=== PATIENT | male | born 1975 | race Caucasian/White ===

== ENCOUNTER 2017-10-05 12:30 | Emergency (ER) | payer BC, SELFPAY ==
[2017-10-05 12:32] VITALS: BP 147/97; PULSE 103; RESP 16; TEMP 36.6; O2SAT 98; BMI 27.3
[2017-10-05] MEDS: diazePAM 5 MG Tablet PO (12:54)
[2017-10-05] MEDS: HYDROmorphone 1 MG/ML Syringe IM (12:54)
--- NOTE | 2017-10-05 12:54 | ED.DCSUM_ITS ---
- ER Visit Summary Date of Service: 10/05/17 Chief Complaint: Acute on chronic back pain History of Present Illness: The patient is a 42 M 3 of chronic back problems. He has had multiple back surgeries with recent L345 fusion. He sees Dr. Nicole for chronic back pain. And he has a spinal stimulator. He said normally his pain is controlled well he does use Percocet at home for pain. States he has been working on a swing set for his children at home and his pain flared up in the last 1-2 days. Denies any bowel or bladder dysfunction or incontinence. Denies any loss of strength or sensation to his lower extremities. Physical Examination: Middle-aged male complaining of pain vital signs are stable afebrile. HEENT exam unremarkable neck nontender lungs clear to auscultation bilaterally. Heart regular rhythm no murmur rate about 100. Chest nontender. Abdomen soft nontender normal bowel sounds no peritoneal signs. He is moving all 4 extremities. Neurovascular intact. No cauda equina or saddle anesthesia normal medial thigh sensation in the lower extremity dorsi plantar flexion intact. Back exam he has a large lower lumbar midline surgical scar. He does have paraspinal tenderness. He does have also muscle spasm of the paralumbar soft tissues. There is no redness or warmth. No signs of trauma. Neurologically is awake and alert with no focal motor or sensory deficits again no cauda equina. Test Results: None Emergency Department Course and Treatment: Patient with acute on chronic low back pain. Has had multiple prior back surgeries. He is already on chronic pain management. Treatment Plan: I am injection of Toradol and Dilaudid. P.o. Valium and discharged home without any prescriptions. He can follow-up with Dr. Chowdary. Disposition: Discharged Impression: Acute on chronic low back pain History of prior back surgery including lumbar fusion This note was generated with [email or web address] dictation software. It may contain incorrect words, spelling, and punctuation that were not noted in review of the chart prior to signing ED Disposition - Plan for ED Patient: Chief Complaint: Back Referrals: Steve Joseph MD [Primary Care Provider] -
--- NOTE | 2017-10-05 12:54 | ED.DEP ---
ED Disposition - Plan for ED Patient: Disposition: Home or Assisted Living Chief Complaint: Back Instructions: ED Neck Back Pain General Referrals: Steve Joseph MD [Primary Care Provider] - As Needed Susan Nicole MD [STAFF PHYSICIAN] - As soon as possible Additional Instructions: Continue your current home pain medications. Call follow-up with Dr. Nicole.
[2017-10-05] MEDS: Ketorolac 60 MG/2 ML Vial IM (12:55)
[2017-10-05 13:25] VITALS: BP 136/86; PULSE 84; RESP 18; O2SAT 97
== END 2017-10-05 13:25 | disposition home or self-care (01) ==
PROVIDERS: Emergency Provider Emergency Medicine; Family Provider Family Medicine; PCP Family Medicine
DX: G89.29 Other chronic pain (principal); M54.5 Low back pain; Z72.0 Tobacco use; Z98.1 Arthrodesis status
CPT/HCPCS: 99282

== ENCOUNTER 2017-10-06 08:23 | Emergency (ER) | payer BC, SELFPAY ==
[2017-10-06 08:24] VITALS: BP 142/96; PULSE 102; RESP 24; TEMP 37.1; O2SAT 99; BMI 27.1
--- NOTE | 2017-10-06 08:40 | ED.DCSUM_ITS ---
- ER Visit Summary Date of Service: 10/06/17 Chief Complaint: Back pain History of Present Illness: The patient is a [address] Nicole and Dr. Swartz. He reports that he has a history of back problems and is had 4 surgeries on his back. Most recently he had a spinal stimulator placed in May 2017. States that he is working on a swing set over the weekend and has had increased pain in his back over the past 3 days. It has been much worse the past 2 days. He denies any trauma. No fall or MVA. Patient describes the pain as a continuous aching that is stabbing with movement or walking. It is 10 out of 10 at worst 9 out of 10 currently. It is unrelieved by his Xtampza Percocet, and baclofen. There is no radiation to his legs. No numbness or weakness in his legs. No problems with his bowels or his bladder. No groin numbness. He has had no fever, chills, abdominal pain, dysuria, or frequency. Physical Examination: Vitals: Stable. Afebrile. General: A&O x 3. NAD. Cardiovascular exam: Regular rate and rhythm, no murmur, rub or gallop. Respiratory exam: Clear to auscultation bilaterally. No wheezes or stridor. Abdominal exam: Soft, nontender, nondistended, normal bowel sounds. No peritoneal signs. Back: Diffuse moderate tenderness to palpation over the lumbar spine and the paraspinous musculature in the lumbar region. No point tenderness. Negative straight leg bilaterally. 5/5 DF, PF, EHL bilaterally. Normal sensation to light touch throughout. Extremity: No clubbing, cyanosis, or edema. Emergency Department Course and Treatment: The patient was discussed with Dr. Nicole who asked that we give him a dose of Dilaudid, Toradol, and Valium here. Treatment Plan: The patient is instructed to increase his baclofen to 20 mg twice daily. Increase his Xtampza to to 3 times daily. He will be placed on a Medrol Dosepak. Dr. Nicole can see him tomorrow for further evaluation and possible injection. Disposition: To home in improved and stable condition. Impression: 1. Acute on chronic back pain. This note was generated with [employer] software. It may contain incorrect words, spelling, and punctuation that were not noted in review of the chart prior to signing ED Disposition - Plan for ED Patient: Chief Complaint: Back Instructions: ED Neck Back Pain General Prescriptions: MethylPREDNISolone DosePak [Medrol DosePak] 4 mg PO UD #1 box Referrals: Susan Nicoel MD [STAFF PHYSICIAN] - 1 Day for another exam
[2017-10-06] MEDS: predniSONE 20 MG Tablet 60 MG PO (08:53)
[2017-10-06] MEDS: Ketorolac 60 MG/2 ML Vial IM (08:53)
[2017-10-06] MEDS: HYDROmorphone 1 MG/ML Syringe IM (08:53)
[2017-10-06] MEDS: diazePAM 5 MG Tablet PO (08:53)
[2017-10-06 09:19] VITALS: BP 110/66; PULSE 88; RESP 18
== END 2017-10-06 09:20 | disposition home or self-care (01) ==
LOC: ED 09:03
PROVIDERS: Emergency Provider Emergency Medicine; Family Provider Family Medicine; PCP Family Medicine
DX: G89.29 Other chronic pain (principal); M54.9 Dorsalgia, unspecified; F17.210 Nicotine dependence, cigarettes, uncomplicated
CPT/HCPCS: 96372; 99284

== ENCOUNTER → 2017-12-14 16:35 | Outpatient (CLI) | payer BC, SELFPAY ==
--- NOTE | 2017-12-14 16:37 | CT_ITS ---
STUDY: CT LUMBAR SPINE WITHOUT CONTRAST REASON FOR EXAM: Male, 42 years old. Back pain. Multiple prior back surgeries. Removal of nerve stimulator. RADIATION DOSAGE (If Supplied By Facility): CTDIvol = ( 16.10 ) mGy, DLP = ( 520.16 ) mGycm TECHNIQUE: The patient was scanned in a multi detector CT scanner. High resolution transaxial imaging was performed. Images were obtained of the lumbar spine. Sagittal and coronal images were reconstructed. Individualized dose optimization techniques were used for this CT. COMPARISON: None FINDINGS: Normal lumbar lordosis. There is no substantial scoliosis. Postoperative changes of posterior lumbar fusion L3-L5 with additional finding suggestive of removal of posterior fusion hardware. Laminectomies at L3, L4 and L5. L1-2: Endplate degenerative changes. Normal disc height and morphology. Normal bilateral facet joints. Normal central canal and bilateral lateral recesses. Normal bilateral intervertebral neural foramina. L2-3: Disc space narrowing with endplate degenerative changes. Normal bilateral facet joints. Normal central canal and bilateral lateral recesses. Normal bilateral intervertebral neural foramina. L3-4: Normal endplates. Normal disc height and morphology. Normal bilateral facet joints. Normal central canal and bilateral lateral recesses. Normal bilateral intervertebral neural foramina. L4-5: Mild marginal osteophytes.. Disc space narrowing. Normal bilateral facet joints. Normal central canal and bilateral lateral recesses. Mild bilateral neural foramina narrowing. L5-S1: Normal endplates. Disc space narrowing with vacuum disc. Broad-based central disc bulge. Normal bilateral facet joints. Normal central canal and bilateral lateral recesses. Mild bilateral neural foraminal narrowing. Normal visualized paraspinous soft tissue structures. Nerve stimulator enters the posterior spinal canal at T12-L1. CT/Spine Lumbar without Contrast IMPRESSION: Multilevel degenerative changes of the lumbar spine. No significant spinal stenosis. Postoperative changes compatible with removal of posterior fusion hardware L3-L5.. Electronically Signed: Rashi Deleon MD at 3:11 EDT , Service support ,
== END ==
PROVIDERS: Visit Provider Anesthesiology Pain Medicine
DX: M54.9 Dorsalgia, unspecified (principal)
CPT/HCPCS: 72131

== ENCOUNTER → 2018-01-04 17:18 | Outpatient (CLI) | payer BC, SELFPAY ==
[2018-01-04 19:04] LABS: Amphetamine Urine VISTA NEGATIVE (<1000 ng/mL); Barbiturate Urine VISTA NEGATIVE (< 200 ng/mL); Benzodiazepine Urine VISTA NEGATIVE (< 200 ng/mL); Cocaine Urine VISTA NEGATIVE (< 300 ng/mL); Ecstacy Urine VISTA NEGATIVE (< 500 ng/mL); Methadone Urine VISTA NEGATIVE (< 300 ng/mL); PCP Urine VISTA NEGATIVE (< 25 ng/mL); THC Urine VISTA NEGATIVE (< 50 ng/mL); Vista UDS pH Range 6
== END ==
PROVIDERS: Visit Provider Anesthesiology Pain Medicine
DX: F11.20 Opioid dependence, uncomplicated (principal)
CPT/HCPCS: 80307

== ENCOUNTER 2018-03-07 12:19 | Emergency (ER) | payer BC, SELFPAY ==
[2018-03-07 12:20] VITALS: BP 143/93; PULSE 104; RESP 18; TEMP 37; O2SAT 98; BMI 26.6
--- NOTE | 2018-03-07 12:50 | ED.DCSUM_ITS ---
- ER Visit Summary Date of Service: 03/07/18 Chief Complaint: Back pain History of Present Illness: The patient is a 43 M who presents with an exacerbation of chronic back pain. He does see pain management. He states yesterday he was moving a window air conditioner unit and carrying it down into the basement and then he was also hanging blinds. He began to have increased pain after carrying the air conditioner but then while hanging the blinds felt a sharper pain in his lower back and when he stepped down [place] his back. He denies any urinary retention or fecal incontinence. He has intermittent pain radiating down to the right leg but not currently. He denies any numbness tingling or weakness. No fevers or abdominal pain. Physical Examination: Heart rate 104 vitals otherwise unremarkable Moist mucous membranes Heart regular rhythm, slightly tachycardic Lungs are clear Abdomen soft nontender Normal strength and sensation of the lower extremities Patient has diffuse lumbar tenderness he has no focal spinal tenderness Test Results: None indicated Emergency Department Course and Treatment: I explained to the patient I do not believe x-rays would be of benefit. We discussed intramuscular morphine. He specifically stated that morphine does not seem to work for him and the other medication they gave him before seem to work better. On review of records he has been previously treated with Dilaudid Toradol and Valium at pain management's request. We will give him intramuscular Dilaudid here and discharged to follow-up with pain management as an outpatient. Treatment Plan: [] Disposition: Discharge Impression: Acute on chronic back pain This note was generated with [employer] dictation software. It may contain incorrect words, spelling, and punctuation that were not noted in review of the chart prior to signing ED Disposition - Plan for ED Patient: Chief Complaint: Back Referrals: Care Physician,No Primary [Primary Care Provider] -
--- NOTE | 2018-03-07 12:50 | ED.DEP ---
ED Disposition - Plan for ED Patient: Chief Complaint: Back Instructions: ED Low Back Pain Injury Referrals: Care Physician,No Primary [Primary Care Provider] - Susan Nicole MD [STAFF PHYSICIAN] -
[2018-03-07] MEDS: HYDROmorphone 1 MG/ML Syringe IM (13:01)
[2018-03-07] MEDS: Orphenadrine 60 MG/2 ML Ampul IM (13:45)
[2018-03-07 13:46] VITALS: BP 140/78; PULSE 76; RESP 18; O2SAT 99
== END 2018-03-07 14:04 | disposition home or self-care (01) ==
LOC: ED 13:27
PROVIDERS: Emergency Provider Emergency Medicine
DX: G89.29 Other chronic pain (principal); M54.9 Dorsalgia, unspecified; R51 Headache; Z72.0 Tobacco use
CPT/HCPCS: 99282

== ENCOUNTER 2018-05-17 10:20 | Emergency (ER) | payer BC, SELFPAY ==
[2018-05-17 10:22] VITALS: BP 145/104; PULSE 113; RESP 16; TEMP 36.6; O2SAT 98; BMI 26.9
[2018-05-17 10:59] VITALS: BP 142/89; PULSE 99; RESP 19; O2SAT 96
--- NOTE | 2018-05-17 10:59 | CT_ITS ---
STUDY: CT BRAIN WITHOUT CONTRAST REASON FOR EXAM: Male, 43 years old. Headaches. RADIATION DOSAGE (If Supplied By Facility): CTDIvol = ( 44.99 ) mGy, DLP = ( 796.11 ) mGycm TECHNIQUE: Transaxial CT imaging of the brain was performed without administration of intravenous contrast material. Individualized dose optimization techniques were used for this CT. COMPARISON: None. FINDINGS: Normal soft tissue structures. Normal calvarium. Normal size ventricles and extra-axial spaces for the patient's age. Normal white matter tracts of the cerebral hemispheres. Normal basal ganglia and thalami. Normal brainstem. Normal cerebellum. There is no intracranial hemorrhage. There are no findings of an acute ischemic infarction. Minimal mucosal thickening along the posterior aspect of the left maxillary sinus. CT/Brain/Head without Contrast IMPRESSION: Normal unenhanced CT scan of the brain. Minimal mucosal thickening of the left maxillary sinus. Electronically Signed: Abdoulaye Adams MD at 12:29 EST Tel [phone], Service support ,
--- NOTE | 2018-05-17 10:59 | EKG12_ITS ---
Test Reason : BACK PAIN Blood Pressure : / mmHG Vent. Rate : 085 BPM Atrial Rate : 085 BPM P-R Int : 122 ms QRS Dur : 092 ms QT Int : 328 ms P-R-T Axes : 041 062 029 degrees QTc Int : 390 ms Normal sinus rhythm Normal ECG Confirmed by TRACY MEDINA, JULY ([id number]), legal editor ORA HUGHES ([id number] on 05/20/2018 10:14:38 AM Referred By: ZULLY Confirmed By:JULY MOLINA MD
[2018-05-17] MEDS: 0.9% Normal Saline 1,000 ML 1000 ML IV (11:16)
[2018-05-17] MEDS: Ondansetron 4 MG/2 ML Vial IV (11:17)
[2018-05-17 11:18] LABS: Absolute Lymphocyte Count 2.06 X10^3/ul (0.83-4.51); Absolute Neutrophil Count 7.1 X10^3/uL (2.0-7.7); Basophil# 0.01 X10^3/uL; Basophil% 0.1 % (0-1); Eosinophil# 0.06 X10^3/uL; Eosinophils% 0.6 % (0-5); Hematocrit 47.8 % (40-54); Hemoglobin 16.7 g/dl (13.0-16.5); Lymphocyte # 2.06 X10^3/ul (4.0); Lymphocyte % 20.9 % (19-41); Mean Corp Hgb Conc 34.9 g/gl (32-36); Mean Corpuscular Hgb 31.5 pg (27.0-32.0); Mean Corpuscular Volume 90.2 fL (80-94); Mean Platelet Vol. 8.6 fl (6.2-12.0); Monocyte# 0.62 X10^3/uL; Monocyte% 6.3 % (0-10); Neutrophil # 7.11 X10^3/uL (2.7-7.7); Neutrophil % 71.9 % (47-70); POSITIVE COUNT NO; POSITIVE DIFFERENTIAL NO; POSITIVE MORPHOLOGY NO; Platelet Count 381 K/mm3 (150-450); RBC Distribution Width CV 13.6 % (11.6-14.6); RBC Distribution Width SD 44.9 fl (35.1-43.9); White Blood Count 9.9 K/mm3 (4.4-11.0)
[2018-05-17] MEDS: Morphine 4 MG/ML Syringe IV ×2 (11:19→12:22)
[2018-05-17 11:27] LABS: Anion Gap 5 (5-15); BUN 12 mg/dL (7-18); BUN/Creat Ratio 14.1 RATIO (10-20); Calcium,Total 8.7 mg/dL (8.5-10.1); Chloride 107 mmol/L (98-107); Creatinine, Serum 0.85 mg/dL (0.70-1.30); EST Glomerular Filtration Rate 103 mL/min (>60); Est Glom Filt Rate - Afr Amer 125 mL/min (>60); Estimated Creatinine Clearance 107.29 ml/min; Glucose 94 mg/dL (74-106); Sodium Level 136 mmol/L (136-145)
--- NOTE | 2018-05-17 11:51 | ED.VISSUMM ---
- ER Visit Summary Date of Service: 05/17/18 Chief Complaint: Back pain History of Present Illness: The patient is a [address] Nicole and had seen Dr. Swartz [facility] to [facility]. He is in the process of transitioning to a new primary care physician whose name he does not remember. He reports that he has chronic back pain, but it been doing well since getting injections by Dr. Nicole last month. States that this morning he turned while getting out of his truck and the pain became acutely worse. It was a sharp, stabbing pain that is 8 out of 10 at worst and 6 out of 10 currently. Is worsened by walking. There is no relation to his legs. No numbness, tingling, or weakness in his legs. No problems with his bowels or his bladder. No groin numbness. Patient reports that he began having palpitations this morning as well. He feels as though his heart is racing. Is not irregular. States that when this started he began to feel quite anxious. He also developed a headache. It is a diffuse pain that began 3 hours ago. Is gradually increasing. It was 10 out of 10 at worst an 8 out of 10 currently. It is a throbbing sensation. He is not had similar headaches previously. Patient reports that he has not felt well over the course the past 2 days and has had a poor appetite. He has had very little p.o. He has been nauseated. Because of this he is not been taking his Xtampza or percocet. He reports that he has had 2 episodes of diarrhea. No blood in stools or black tarry stools. No abdominal pain or vomiting. No fever or chills. Physical Examination: Vitals: Stable. Afebrile. General: A&O x 3. NAD. Cardiovascular exam: Regular rate and rhythm, no murmur, rub or gallop. Respiratory exam: Clear to auscultation bilaterally. No wheezes or stridor. Abdominal exam: Soft, nontender, nondistended, normal bowel sounds. No peritoneal signs. Back: Diffuse moderate tenderness to palpation over the lumbar spine and the paraspinous musculature in the lumbar region. No point tenderness. Negative straight leg bilaterally. 5/5 DF, PF, EHL bilaterally. Normal sensation to light touch throughout. Extremity: No clubbing, cyanosis, or edema. Test Results: EKG is sinus at [address] changes. There is no old EKG for comparison. CBC is more for hemoglobin of 16.77 neutrophils 72. Chem-[address] brain shows no acute disease. Emergency Department Course and Treatment: Patient had an IV placed. He was given a liter normal saline. He is given morphine and Zofran IV. He has had some improvement with this. Treatment Plan: Patient will be discharged with Zofran. Instructed that he needs to take his pain medications as directed to prevent withdrawal. Follow-up with Dr. Nicole in 3-5 days if not improving. Return to the emergency department for any worsening symptoms. Disposition: To home in improved and stable condition. Impression: 1. Back pain, acute on chronic. 2. Anxiety. 3. Cephalgia. This note was generated with [employer] dictation software. It may contain incorrect words, spelling, and punctuation that were not noted in review of the chart prior to signing ED Disposition - Plan for ED Patient: Chief Complaint: General Illness Instructions: ED Sprain Strain Lumbar Prescriptions: Ondansetron [Zofran Odt] 4 mg PO Q8H PRN PRN #10 tablet PRN Reason: Nausea Referrals: Susan Nicole MD [STAFF PHYSICIAN] - 3-5 Days if not improving Cara Daley DO [Primary Care Provider] - 1-2 Days if not improving
--- NOTE | 2018-05-17 11:55 | ED.DCSUM_ITS ---
- ER Visit Summary Date of Service: 05/17/18 Chief Complaint: Back pain History of Present Illness: The patient is a [address] Nicole and had seen Dr. Swartz prior to his shelter. He is in the process of transitioning to a new primary care physician whose name he does not remember. He reports t hat he has chronic back pain, but it been doing well since getting injections by Dr. Nicole last month. States that this morning he turned while getting out of his truck and the pain became acutely worse. It was a sharp, stabbing pain that is 8 out of 10 at worst and 6 out of 10 currently. Is worsened by walking. There is no relation to his legs. No numbness, tingling, or weakness in his legs. No problems with his bowels or his bladder. No groin numbness. Patient reports that he began having palpitations this morning as well. He feels as though his heart is racing. Is not irregular. States that when this started he began to feel quite anxious. He also developed a headache. It is a diffuse pain that began 3 hours ago. Is gradually increasing. It was 10 out of 10 at worst an 8 out of 10 currently. It is a throbbing sensation. He is not had similar headaches previously. Patient reports that he has not felt well over the course the past 2 days and has had a poor appetite. He has had very little p.o. He has been nauseated. Because of this he is not been taking his Xtampza or percocet. He reports that he has had 2 episodes of diarrhea. No blood in stools or black tarry stools. No abdominal pain or vomiting. No fever or chills. Physical Examination: Vitals: Stable. Afebrile. General: A&O x 3. NAD. Cardiovascular exam: Regular rate and rhythm, no murmur, rub or gallop. Respiratory exam: Clear to auscultation bilaterally. No wheezes or stridor. Abdominal exam: Soft, nontender, nondistended, normal bowel sounds. No peritoneal signs. Back: Diffuse moderate tenderness to palpation over the lumbar spine and the paraspinous musculature in the lumbar region. No point tenderness. Negative straight leg bilaterally. 5/5 DF, PF, EHL bilaterally. Normal sensation to light touch throughout. Extremity: No clubbing, cyanosis, or edema. Test Results: EKG is sinus at [address] changes. There is no old EKG fo r comparison. CBC is more for hemoglobin of 16.77 neutrophils 72. Chem-[address] brain shows no acute disease. Emergency Department Course and Treatment: Patient had an IV placed. He was given a liter normal saline. He is given morphine and Zofran IV. He has had some improvement with this. Treatment Plan: Patient will be discharged with Zofran. Instructed that he needs to take his pain medications as directed to prevent withdrawal. Follow-up with Dr. Nicole in 3-5 days if not improving. Return to the emergency depa rtment for any worsening symptoms. Disposition: To home in improved and stable condition. Impression: 1. Back pain, acute on chronic. 2. Anxiety. 3. Cephalgia. This note was generated with [employer] dictation software. It may contain incorrect words, spelling, and punctuation that were not noted in review of the chart prior to signing ED Disposition - Plan for ED Patient: Chief Complaint: General Illness Instructions: ED Sprain Strain Lumbar Prescriptions: Ondansetron [Zofran Odt] 4 mg PO Q8H PRN PRN #10 tablet PRN Reason: Nausea Referrals: Susan Nicole MD [STAFF PHYSICIAN] - 3-5 Days if not improving Cara Daley DO [Primary Care Provider] - 1-2 Days if not improving
[2018-05-17] MEDS: Ketorolac 30 MG/ML Syringe IV (12:23)
[2018-05-17 12:26] VITALS: BP 129/95; PULSE 86; RESP 15; O2SAT 96
[2018-05-17] MEDS: LORazepam 1 MG Tablet PO (13:05)
--- OUTSIDE RECORDS SUMMARY | 2018-07-03 12:55 | XMS RPT_ITS ---
:1975 Author Organization [facility] Care Team Providers Name Role Phone BERENICE YEAGER Attending Unavailable LIA IBARRA MD Primary Care Unavailable DR. ERICA HALE DO Attending Unavailable FRED MD, LIA H. Primary Care Unavailable Alberto Catalan Attending Unavailable Erica Hale Primary Care Unavailable Fred, Lia Primary Care Unavailable Conor Downing Attending Unavailable Fred, Lia Primary Care Unavailable Alayna, Alberto Attending Unavailable Basali, Ayriver Attending Unavailable Basali, Ayman Referring Unavailable Primay Care Physicia, No Primary Care Unavailable Basali, Ayman Attending Unavailable Basali, Ayman Referring Unavailable Primay Care Physicia, No Primary Care Unavailable Primay Care Physicia, No Primary Care Unavailable Reynaldo Ann Attending Unavailable PROBLEMS PROBLEMS No Problem Records FoundPROCEDURES PROCEDURES No Procedure Records FoundRESULTS RESULTS 12 LEAD ELECTROCARDIOGRAM Observed: 05/20/2018 Status: F Source: [place] 10:15 AM [facility] Cardiovascular Services [address] [place] [address] 12 Lead EKG 05/17/18 1114 MR#: [id number] Acct: [id number] Name: RONI LAWSON Rep #: [id number] : 1975 43 From: Loc Contreras MD Attending Dr: Status: DEP ER Ordering Dr: Alberto Catalan MD Date: 05/17/18 Location: ED Sex: M C Admitted: Test Reason : BACK PAIN Blood Pressure : / mmHG Vent. Rate : 085 BPM Atrial Rate : 085 BPM P-R Int : 122 ms QRS Dur : 092 ms QT Int : 328 ms P-R-T Axes : 041 062 029 degrees QTc Int : 390 ms Normal sinus rhythm Normal ECG Confirmed by LOC CONTRERAS MD ([id number]), deputy editor in chief ORA HUGHES ([id number]) on 05/20/2018 10:14:38 AM Referred By: ALAYNA Confirmed By:LOC CONTRERAS MD 05/20/18 1014 Date Loc Contreras MD CC: Erica Hale DO; Alberto Catalan MD Signed EMERGENCY DEPARTMENT Observed: 05/19/2018 Status: F Source: [place] SUMMARY 1:05 AM [facility] REPOSITORY [facility] Medical Records Department [address] [place] [address] Emergency Department Summary 12/11/18 1151 MR#: [id number] Acct: [id number] Name: RONI LAWSON Rep #: [id number] : 1975 43 From: Alberto Catalan MD PCP: Erica Hale, Status: DEP ER - ER Visit Summary Date of Service: 05/17/18 Chief Complaint: Back pain History of Present Illness: The patient is a [address] Nicole and had seen Dr. Swartz prior to his care home. He is in the process of transitioning to a new primary care physician whose name he does not remember. He reports that he has chronic back pain, but it been doing well since getting injections by Dr. Nicole last month. States that this morning he turned while getting out of his truck and the pain became acutely worse. It was a sharp, stabbing pain that is 8 out of 10 at worst and 6 out of 10 currently. Is worsened by walking. There is no relation to his legs. No numbness, tingling, or weakness in his legs. No problems with his bowels or his bladder. No groin numbness. Patient reports that he began having palpitations this morning as well. He feels as though his heart is racing. Is not irregular. States that when this started he began to feel quite anxious. He also developed a headache. It is a diffuse pain that began 3 hours ago. Is gradually increasing. It was 10 out of 10 at worst an 8 out of 10 currently. It is a throbbing sensation. He is not had similar headaches previously. Patient reports that he has not felt well over the course the past 2 days and has had a poor appetite. He has had very little p.o. He has been nauseated. Because of this he is not been taking his Xtampza or percocet. He reports that he has had 2 episodes of diarrhea. No blood in stools or black tarry stools. No abdominal pain or vomiting. No fever or chills. Physical Examination: Vitals: Stable. Afebrile. General: A AND O x 3. NAD. Cardiovascular exam: Regular rate and rhythm, no murmur, rub or gallop. Respiratory exam: Clear to auscultation bilaterally. No wheezes or stridor. Abdominal exam: Soft, nontender, nondistended, normal bowel sounds. No peritoneal signs. Back: Diffuse moderate tenderness to palpation over the lumbar spine and the paraspinous musculature in the lumbar region. No point tenderness. Negative straight leg bilaterally. 5/5 DF, PF, EHL bilaterally. Normal sensation to light touch throughout. Extremity: No clubbing, cyanosis, or edema. Test Results: EKG is sinus at [address] changes. There is no old EKG for comparison. CBC is more for hemoglobin of 16.77 neutrophils 72. Chem- [address] brain shows no acute disease. Emergency Department Course and Treatment: Patient had an IV placed. He was given a liter normal saline. He is given morphine and Zofran IV. He has had some improvement with this. Treatment Plan: Patient will be discharged with Zofran. Instructed that he needs to take his pain medications as directed to prevent withdrawal. Follow- up with Dr. Nicole in 3-5 days if not improving. Return to the emergency department for any worsening symptoms. Disposition: To home in improved and stable condition. Impression: 1. Back pain, acute on chronic. 2. Anxiety. 3. Cephalgia. This note was generated with rumr: turn off the lights dictation software. It may contain incorrect words, spelling, and punctuation that were not noted in review of the chart prior to signing ED Disposition - Plan for ED Patient: Chief Complaint: General Illness Instructions: ED Sprain Strain Lumbar Prescriptions: Ondansetron [Zofran Odt] 4 mg PO Q8H PRN PRN #10 tablet PRN Reason: Nausea Referrals: Susan Nicole MD [STAFF PHYSICIAN] - 3-5 Days if not improving Erica Hale DO [Primary Care Provider] - 1-2 Days if not improving What to do if you have Problems For any increased pain, shortness of breath, bleeding, nausea or vomiting, chest pain, or any unexpected problems, contact your Primary Care Provider. Call [facility] ([phone]) or report to the closest Emergency Room. Call 911 if necessary. 05/19/18 0105 <Electronically signed by Alberto Catalan MD> Date Alberto Changignankur Signature (If Indicated): Date CC: Erica Hale, DO CBC W/DIFF, AUTOMATED Collected: 05/17/2018 Status: F Source: [place] 11:10 AM [facility] REPOSITORY TYPE CODE TESTS RESULT OUT OF RANGE REFERENCE UNITS LAB L100.1000 4.4-11.0 K/mm3 Normal WBC 9.9 LAB L100.1200 4.6-6.2 M/mm3 Normal RBC 5.30 LAB L100.1300 13.0-16.5 g/dl High HGB 16.7 LAB L100.1400 40-54 % Normal HCT 47.8 LAB L100.1500 80-94 fL Normal MCV 90.2 LAB L100.1600 27.0-32.0 pg Normal MCH 31.5 LAB L100.1700 32-36 g/gl Normal MCHC 34.9 LAB L100.1810 11.6-14.6 % Normal RDW CV 13.6 LAB L100.1820 35.1-43.9 fl High RDW SD 44.9 LAB L100.1900 150-450 K/mm3 Normal PLT 381 LAB L100.2000 6.2-12.0 fl Normal MPV 8.6 LAB L100.2100 47-70 % High NEUT% 71.9 LAB L100.2200 19-41 % Normal LY% 20.9 LAB L100.2300 0-10 % Normal MONO% 6.3 LAB L100.2400 0-5 % Normal EO% 0.6 LAB L100.2500 0-1 % Normal BASO% 0.1 LAB L100.2550 0.0-0.9 % Normal IM GRAN % 0.200 Result Comment: IG% - Immature Granulocytes (promyelocytes, myelocytes and metamyelocytes) > 1% indicates that a LEFT SHIFT is Present. LAB L100.2620 2.0-7.7 X10 3/uL Normal Absolute Neut 7.1 LAB L100.2720 0.83-4.51 X10 3/ul Normal Absolute Lymph 2.06 Performed By: #### L100.0100 #### [facility] [address] [place], [address] BASIC METABOLIC Collected: 05/17/2018 Status: F Source: [place] PROFILE (BMP) 11:10 AM [facility] REPOSITORY TYPE CODE TESTS RESULT OUT OF RANGE REFERENCE UNITS LAB L501.0100 74-106 mg/dL Normal GLU 94 Result Comment: Please note revised GLUCOSE reference range effective 2017. LAB L501.1000 7-18 mg/dL Normal BUN 12 LAB L501.1100 0.70-1.30 mg/dL Normal CREAT,SERUM 0.85 Result Comment: The validity of the calculated GFR AND GFRAA in patients over 70 years has not been determined. Clinical correlation is essential. LAB L501.1110 >60 mL/min Normal EST GFR 103 Result Comment: Non- GFR Calc LAB L501.1115 >60 mL/min Normal EST GFR - AA 125 Result Comment: GFR Calc LAB L501.1255 ml/min Normal Estimated CRCL 107.29 LAB L501.1300 10-20 RATIO BUN/CRE Normal 14.1 LAB L501.2200 8.5-10 mg/dL .1 CA Normal 8.7 LAB L501.5300 136-14 mmol/L 5 NA Normal 136 LAB L501.5600 3.5-5. mmol/L 1 K Normal 4.0 LAB L501.5900 98-107 mmol/L CL Normal 107 LAB L501.6100 21.0-3 mmol/L 2.0 CO2 Normal 24.0 LAB L501.6200 5-15 GAP Normal 5 Performed By: #### L500.2500 #### [facility] [address] [place], [address] BRAIN/HEAD WITHOUT Observed: 05/17/2018 Status: F Source: [place] CONTRAST 11:00 AM [facility] REPOSITORY [facility] Imaging Services [address] [place] [address] Brain/Head without Contrast MR#: [id number] Acct: [id number] Name: RONI LAWSON Pati Rep #: [id number] : 1975 M 43 From: Abdoulaye Adams MD PCP: Erica Hale DO Status: REG ER Study: Brain/Head without Contrast Date of Exam: 05/17/18 Exam# [id number] Ordering Dr: Alberto Catalan MD STUDY: CT BRAIN WITHOUT CONTRAST REASON FOR EXAM: Male, 43 years old. Headaches. RADIATION DOSAGE (If Supplied By Facility): CTDIvol = ( 44.99 ) mGy, DLP = ( 796.11 ) mGycm TECHNIQUE: Transaxial CT imaging of the brain was performed without administration of intravenous contrast material. Individualized dose optimization techniques were used for this CT. COMPARISON: None. FINDINGS: Normal soft tissue structures. Normal calvarium. Normal size ventricles and extra-axial spaces for the patient's age. Normal white matter tracts of the cerebral hemispheres. Normal basal ganglia and thalami. Normal brainstem. Normal cerebellum. There is no intracranial hemorrhage. There are no findings of an acute ischemic infarction. Minimal mucosal thickening along the posterior aspect of the left maxillary sinus. CT/Brain/Head without Contrast IMPRESSION: Normal unenhanced CT scan of the brain. Minimal mucosal thickening of the left maxillary sinus. Electronically Signed: Abdoulaye Adams MD at 12:29 EST Tel [phone], Service support , CC: Erica Hale DO; Alberto Catalan MD Parachute Mender: Signed TSH Collected: 03/28/2018 Status: F Source: [facility] 12:17 PM [facility] REPOSITORY TYPE CODE TESTS RESULT OUT OF RANGE REFERENCE UNITS LAB TSH(LOINC) 0.36-3.74 mcIU/mL TSH 1.00 Performed By: #### TSH, LIPID, CMP, GFR #### [place] [address] LIPID Collected: 03/28/2018 Status: F Source: [facility] 12:17 PM [facility] REPOSITORY TYPE CODE TESTS RESULT OUT OF REFERENCE UNITS RANGE LAB CHOL(LOINC 0-200 mg/dL ) Cholesterol 196 Result Comment: Cholesterol Reference Interval: Less than 200 Desirable 200-239 Borderline high risk 240 and above High risk LAB TRIG(LOINC) 0-150 mg/dL Triglycerides High 154 Result Comment: Triglyceride Reference Interval: Less than 150 Normal 150-199 Borderline high risk 200-499 High risk 500 or higher Very high risk LAB HD(LOINC) 40-60 mg/dL HDL Cholesterol 43 LAB LDL(LOINC) 0-130 mg/dL LDL Cholesterol 122 Performed By: #### TSH, LIPID, CMP, GFR #### [facility] [address] [place] [address] CMP Collected: 03/28/2018 Status: F Source: [facility] 12:17 PM [facility] REPOSITORY TYPE CODE TESTS RESULT OUT OF REFERENCE UNITS RANGE LAB GLU(LOINC) 70-105 mg/dL Glucose High Level 118 LAB NA(LOINC) 136-145 mmol/L Sodium Level 138 LAB K(LOINC) 3.5-5.1 mmol/L Potassium Level 4.5 LAB CL(LOINC) 98-107 mmol/L Chloride 100 LAB CO2(LOINC) 22-29 mmol/L CO2 28 LAB EBAL(LOINC mEq/L ) Electrolyte Balance 10.0 LAB BUN(LOINC) 7-18 mg/dL BUN 11 LAB CRE(LOINC) 0.70-1.30 mg/dL Creatinine Lvl (s) 1.01 LAB BC(LOINC) 7-27 ratio BUN/Creatinine 11 Ratio LAB CA(LOINC) 8.4-10.2 mg/dL Calcium Lvl 9.5 LAB PROT(LOINC 6.4-8.2 G/dL ) Total Protein 7.3 LAB ALB(LOINC) 3.5-5.0 G/dL Albumin Level 4.3 LAB GLB(LOINC) G/dL Globulin 3.0 LAB AG(LOINC) 1.1-2.5 ratio A/G Ratio 1.4 LAB BILT(LOINC 0.2-1.0 mg/dL ) Bili Total 0.7 LAB AP(LOINC) 40-135 U/L Alk Phos 58 LAB AST(LOINC) 10-40 U/L AST/SGOT 10 LAB ALT(LOINC) 10-35 U/L ALT/SGPT 22 Performed By: #### TSH, LIPID, CMP, GFR #### [address] [address] .GFR Collected: 03/28/2018 Status: F Source: [facility] 12:17 PM [facility] REPOSITORY TYPE CODE TESTS RESULT OUT OF REFERENCE UNITS RANGE LAB GFRAA(LOINC ml/min/1.73 ) sqm GFR 97 Swedish Result Comment: GFR Population mean for , Non- Americans Ages 20-29 = 116 mL/min/1.73 sq.m. Ages 30-39 = 107 mL/min/1.73 sq.m. Ages 40-49 = 99 mL/min/1.73 sq.m. Ages 50-59 = 93 mL/min/1.73 sq.m. Ages 60-69 = 85 mL/min/1.73 sq.m. Ages 70+ = 75 mL/min/1.73 sq.m. Chronic Kidney Disease: Less than 60 mL/min/1.73 square meters End Stage Renal Disease: Less than 15 mL/min/1.73 square meters LAB GFRNO(LOINC) ml/min/1.73sqm GFR Non- 80 Result Comment: GFR Population mean for , Non- Americans Ages 20-29 = 116 mL/min/1.73 sq.m. Ages 30-39 = 107 mL/min/1.73 sq.m. Ages 40-49 = 99 mL/min/1.73 sq.m. Ages 50-59 = 93 mL/min/1.73 sq.m. Ages 60-69 = 85 mL/min/1.73 sq.m. Ages 70+ = 75 mL/min/1.73 sq.m. Chronic Kidney Disease: Less than 60 mL/min/1.73 square meters End Stage Renal Disease: Less than 15 mL/min/1.73 square meters Performed By: #### TSH, LIPID, CMP, GFR #### [address] [address] DISCHARGE INSTRUCTION Observed: 03/07/2018 Status: F Source: [place] 12:51 PM [facility] REPOSITORY [facility] Medical Records Department [address] [place] [address] Discharge Instruction 03/07/18 1250 MR#: [id number] Acct: [id number] Name: RONI LAWSON Rep #: [id number] : 1975 43 From: Reynaldo Ann MD PCP: Shu Physician, No Primary Status: PRE ER ED Disposition - Plan for ED Patient: Chief Complaint: Back Instructions: ED Low Back Pain Injury Referrals: Care Physician,No Primary [Primary Care Provider] - Susan Nicole MD [STAFF PHYSICIAN] - What to do if you have Problems For any increased pain, shortness of breath, bleeding, nausea or vomiting, chest pain, or any unexpected problems, contact your Primary Care Provider. Call [facility] ([phone]) or report to the closest Emergency Room. Call 911 if necessary. 03/07/18 1251 <Electronically signed by Reynaldo Ann MD> Date Reynaldo Ann MD Cosigner Signature (If Indicated): Date CC: No Primary Care Physician EMERGENCY DEPARTMENT Observed: 03/07/2018 Status: F Source: [place] SUMMARY 12:50 PM [facility] REPOSITORY [facility] Medical Records Department [address] [place] [address] Emergency Department Summary 03/07/18 1247 MR#: [id number] Acct: [id number] Name: RONI LAWSON Rep #: [id number] : 1975 43 From: Reynaldo Ann MD PCP: Shu Rey, No Primary Status: PRE ER - ER Visit Summary Date of Service: 03/07/18 Chief Complaint: Back pain History of Present Illness: The patient is a 43 M who presents with an exacerbation of chronic back pain. He does see pain management. He states yesterday he was moving a window air conditioner unit and carrying it down into the basement and then he was also hanging blinds. He began to have increased pain after carrying the air conditioner but then while hanging the blinds felt a sharper pain in his lower back and when he stepped down [place] his back. He denies any urinary retention or fecal incontinence. He has intermittent pain radiating down to the right leg but not currently. He denies any numbness tingling or weakness. No fevers or abdominal pain. Physical Examination: Heart rate 104 vitals otherwise unremarkable Moist mucous membranes Heart regular rhythm, slightly tachycardic Lungs are clear Abdomen soft nontender Normal strength and sensation of the lower extremities Patient has diffuse lumbar tenderness he has no focal spinal tenderness Test Results: None indicated Emergency Department Course and Treatment: I explained to the patient I do not believe x-rays would be of benefit. We discussed intramuscular morphine. He specifically stated that morphine does not seem to work for him and the other medication they gave him before seem to work better. On review of records he has been previously treated with Dilaudid Toradol and Valium at pain management's request. We will give him intramuscular Dilaudid here and discharged to follow-up with pain management as an outpatient. Treatment Plan: [] Disposition: Discharge Impression: Acute on chronic back pain This note was generated with rumr: turn off the lights dictation software. It may contain incorrect words, spelling, and punctuation that were not noted in review of the chart prior to signing ED Disposition - Plan for ED Patient: Chief Complaint: Back Referrals: Care Physician,No Primary [Primary Care Provider] - What to do if you have Problems For any increased pain, shortness of breath, bleeding, nausea or vomiting, chest pain, or any unexpected problems, contact your Primary Care Provider. Call [facility] ([phone]) or report to the closest Emergency Room. Call 911 if necessary. 03/07/18 1250 <Electronically signed by Reynaldo Ann MD> Date Reynaldo Ann MD Cosigner Signature (If Indicated): Date CC: No Primary Care Physician URINE DRUG SCREEN Collected: 01/04/2018 Status: F Source: [place] ([place]A) 5:23 PM [facility] REPOSITORY Order Comment: List of Drugs Taken or Suspected? . TYPE CODE TESTS RESULT OUT OF RANGE REFERENCE UNITS LAB L505.0075 TO BE Normal CONFIRMED Result Comment: CONFIRMATORY TESTING FOR ALL POSITIVE URINE DRUG SCREEN RESULTS WILL ONLY BE SENT OUT UPON PHYSICIAN ORDER. VISTA Urine Drug Screen methods provide only preliminary analytical test results. A more specific alternate chemical method must be used in order to obtain a confirmed analytical result. Gas chromatography/mass spectrometery (GC/MS) is the preferred confirmatory method. Clinical consideration and professional judgement should be applied to any drug of abuse test result, particularly when preliminary positive results are used. URINE TCA TESTING MUST BE ORDERED SEPARATELY. USE TEST MNEMONIC: [facility] LAB L505.5005 VISTA UDS PH 6 Normal LAB L505.5015 <1000 ng/mL AMPHETAMINES Normal NEGATIVE LAB L505.5025 < 200 ng/mL BARBITIURATES Normal NEGATIVE LAB L505.5035 < 200 ng/mL BENZODIAZIPINE Normal NEGATIVE LAB L505.5045 < 300 ng/mL COCAINE Normal NEGATIVE LAB L505.5055 < 500 ng/mL ECSTACY Normal NEGATIVE LAB L505.5065 < 300 ng/mL METHADONE Normal NEGATIVE LAB L505.5075 < 300 ng/mL OPIATES Normal NEGATIVE LAB L505.5085 < 25 ng/mL PCP Normal NEGATIVE LAB L505.5095 < 50 ng/mL THC Normal NEGATIVE Performed By: #### L505.5000 #### [facility] [place], [address] MISCELLANEOUS LAB Collected: 01/04/2018 Status: F Source: [place] PROCEDURE 5:23 PM [facility] REPOSITORY Order Comment: Test(s) Ordered: 160580 TYPE CODE TESTS RESULT OUT OF RANGE REFERENCE UNITS LAB L801.1541 Normal [facility] LAB TEST Result Comment: TEST RESULT UNITS REF INTERVAL [id number] 6+Oxycodone-Bund Amphetamines, Urine Negative ng/mL Ipepvg=8630 Amphetamine test includes Amphetamine and Methamphetamine. Barbiturate Negative ng/mL Gjcjpt=841 Benzodiazepines Negative ng/mL Mqznvm=202 Cannabinoids Negative ng/mL Cutoff=20 Cocaine (Metabolite) Negative ng/mL Wcixos=849 Opiates Negative ng/mL Owijhd=588 Opiate test includes Codeine, Morphine, Hydromorphone, Hydrocodone. Oxycodone/Oxymorph Positive Srppuu=513 Test includes Oxycodone and Oxymorphone Oxycodone Positive Oxycodone (GC/MS) 389 ng/mL Qxepcj=991 Oxymorphone Negative Waupzw=942 TESTING PERFORMED AT [facility]. ORIGINAL REPORT ON FILE IN LAB CONTAINS ADDITIONAL TEST SITE INFORMATION. Performed By: #### L801.1541 #### [facility] [address] [facility] [place], [address] SPINE LUMBAR WITHOUT Observed: 12/14/2017 Status: F Source: [place] CONTRAST 4:37 PM [facility] REPOSITORY [facility] Imaging Services [address] [place] [address] Spine Lumbar without Contrast MR#: [id number] Acct: [id number] Name: RONI LAWSON Pati Rep #: [id number] : 1975 M 42 From: Rashi Deleon PCP: Care Physician, No Primary Status: REG CLI Study: Spine Lumbar without Contrast Date of Exam: 12/14/17 Exam# [id number] Ordering Dr: Susan Nicole MD STUDY: CT LUMBAR SPINE WITHOUT CONTRAST REASON FOR EXAM: Male, 42 years old. Back pain. Multiple prior back surgeries. Removal of nerve stimulator. RADIATION DOSAGE (If Supplied By Facility): CTDIvol = ( 16.10 ) mGy, DLP = ( 520.16 ) mGycm TECHNIQUE: The patient was scanned in a multi detector CT scanner. High resolution transaxial imaging was performed. Images were obtained of the lumbar spine. Sagittal and coronal images were reconstructed. Individualized dose optimization techniques were used for this CT. COMPARISON: None FINDINGS: Normal lumbar lordosis. There is no substantial scoliosis. Postoperative changes of posterior lumbar fusion L3-L5 with additional finding suggestive of removal of posterior fusion hardware. Laminectomies at L3, L4 and L5. L1-2: Endplate degenerative changes. Normal disc height and morphology. Normal bilateral facet joints. Normal central canal and bilateral lateral recesses. Normal bilateral intervertebral neural foramina. L2-3: Disc space narrowing with endplate degenerative changes. Normal bilateral facet joints. Normal central canal and bilateral lateral recesses. Normal bilateral intervertebral neural foramina. L3-4: Normal endplates. Normal disc height and morphology. Normal bilateral facet joints. Normal central canal and bilateral lateral recesses. Normal bilateral intervertebral neural foramina. L4-5: Mild marginal osteophytes.. Disc space narrowing. Normal bilateral facet joints. Normal central canal and bilateral lateral recesses. Mild bilateral neural foramina narrowing. L5-S1: Normal endplates. Disc space narrowing with vacuum disc. Broad-based central disc bulge. Normal bilateral facet joints. Normal central canal and bilateral lateral recesses. Mild bilateral neural foraminal narrowing. Normal visualized paraspinous soft tissue structures. Nerve stimulator enters the posterior spinal canal at T12-L1. CT/Spine Lumbar without Contrast IMPRESSION: Multilevel degenerative changes of the lumbar spine. No significant spinal stenosis. Postoperative changes compatible with removal of posterior fusion hardware L3-L5.. Electronically Signed: Rashi Deleon MD at 3:11 EDT , Service support , CC: No Primary Care Physician; Susan Nicole MD Parachute Mender: Signed EMERGENCY DEPARTMENT Observed: 10/06/2017 Status: F Source: [place] SUMMARY 5:44 PM [facility] REPOSITORY [facility] Medical Records Department [address] [place] [address] Emergency Department Summary 10/06/17 0836 MR#: [id number] Acct: [id number] Name: RONI LAWSON Rep #: [id number] : 1975 42 From: Alberto Catalan MD PCP: Lia Ibarra MD Status: DEP ER - ER Visit Summary Date of Service: 10/06/17 Chief Complaint: Back pain History of Present Illness: The patient is a [address] Nicole and Dr. Swartz. He reports that he has a history of back problems and is had 4 surgeries on his back. Most recently he had a spinal stimulator placed in May 2017. States that he is working on a swing set over the weekend and has had increased pain in his back over the past 3 days. It has been much worse the past 2 days. He denies any trauma. No fall or MVA. Patient describes the pain as a continuous aching that is stabbing with movement or walking. It is 10 out of 10 at worst 9 out of 10 currently. It is unrelieved by his Xtampza Percocet, and baclofen. There is no radiation to his legs. No numbness or weakness in his legs. No problems with his bowels or his bladder. No groin numbness. He has had no fever, chills, abdominal pain, dysuria, or frequency. Physical Examination: Vitals: Stable. Afebrile. General: A AND O x 3. NAD. Cardiovascular exam: Regular rate and rhythm, no murmur, rub or gallop. Respiratory exam: Clear to auscultation bilaterally. No wheezes or stridor. Abdominal exam: Soft, nontender, nondistended, normal bowel sounds. No peritoneal signs. Back: Diffuse moderate tenderness to palpation over the lumbar spine and the paraspinous musculature in the lumbar region. No point tenderness. Negative straight leg bilaterally. 5/5 DF, PF, EHL bilaterally. Normal sensation to light touch throughout. Extremity: No clubbing, cyanosis, or edema. Emergency Department Course and Treatment: The patient was discussed with Dr. Nicole who asked that we give him a dose of Dilaudid, Toradol, and Valium here. Treatment Plan: The patient is instructed to increase his baclofen to 20 mg twice daily. Increase his Xtampza to to 3 times daily. He will be placed on a Medrol Dosepak. Dr. Nicole can see him tomorrow for further evaluation and possible injection. Disposition: To home in improved and stable condition. Impression: 1. Acute on chronic back pain. This note was generated with rumr: turn off the lights dictation software. It may contain incorrect words, spelling, and punctuation that were not noted in review of the chart prior to signing ED Disposition - Plan for ED Patient: Chief Complaint: Back Instructions: ED Neck Back Pain General Prescriptions: MethylPREDNISolone DosePak [Medrol DosePak] 4 mg PO UD #1 box Referrals: Suasn Nicole MD [STAFF PHYSICIAN] - 1 Day for another exam What to do if you have Problems For any increased pain, shortness of breath, bleeding, nausea or vomiting, chest pain, or any unexpected problems, contact your Primary Care Provider. Call [facility] ([phone]) or report to the closest Emergency Room. Call 911 if necessary. 10/06/17 1744 <Electronically signed by Alberto Catalan MD> Date Alberto Catalan MD Cosigner Signature (If Indicated): Date CC: Lia Ibarra MD EMERGENCY DEPARTMENT Observed: 10/05/2017 Status: F Source: [place] SUMMARY 5:25 PM [facility] REPOSITORY [facility] Medical Records Department [address] [place] [address] Emergency Department Summary 10/05/17 1250 MR#: [id number] Acct: [id number] Name: RONI LAWSON Rep #: [id number] : 1975 42 From: Conor Downing MD PCP: Lia Ibarra MD Status: DEP ER - ER Visit Summary Date of Service: 10/05/17 Chief Complaint: Acute on chronic back pain History of Present Illness: The patient is a 42 M 3 of chronic back problems. He has had multiple back surgeries with recent L345 fusion. He sees Dr. Nicole for chronic back pain. And he has a spinal stimulator. He said normally his pain is controlled well he does use Percocet at home for pain. States he has been working on a swing set for his children at home and his pain flared up in the last 1-2 days. Denies any bowel or bladder dysfunction or incontinence. Denies any loss of strength or sensation to his lower extremities. Physical Examination: Middle-aged male complaining of pain vital signs are stable afebrile. HEENT exam unremarkable neck nontender lungs clear to auscultation bilaterally. Heart regular rhythm no murmur rate about 100. Chest nontender. Abdomen soft nontender normal bowel sounds no peritoneal signs. He is moving all 4 extremities. Neurovascular intact. No cauda equina or saddle anesthesia normal medial thigh sensation in the lower extremity dorsi plantar flexion intact. Back exam he has a large lower lumbar midline surgical scar. He does have paraspinal tenderness. He does have also muscle spasm of the paralumbar soft tissues. There is no redness or warmth. No signs of trauma. Neurologically is awake and alert with no focal motor or sensory deficits again no cauda equina. Test Results: None Emergency Department Course and Treatment: Patient with acute on chronic low back pain. Has had multiple prior back surgeries. He is already on chronic pain management. Treatment Plan: I am injection of Toradol and Dilaudid. P.o. Valium and discharged home without any prescriptions. He can follow-up with Dr. Chowdary. Disposition: Discharged Impression: Acute on chronic low back pain History of prior back surgery including lumbar fusion This note was generated with rumr: turn off the lights dictation software. It may contain incorrect words, spelling, and punctuation that were not noted in review of the chart prior to signing ED Disposition - Plan for ED Patient: Chief Complaint: Back Referrals: Lia Ibarra MD [Primary Care Provider] - What to do if you have Problems For any increased pain, shortness of breath, bleeding, nausea or vomiting, chest pain, or any unexpected problems, contact your Primary Care Provider. Call [facility] ([phone]) or report to the closest Emergency Room. Call 911 if necessary. 10/05/17 4315 <Electronically signed by Conor Downing MD> Date Conor Downing MD Cosigner Signature (If Indicated): Date CC: Lia Ibarra MD DISCHARGE INSTRUCTION Observed: 10/05/2017 Status: F Source: [place] 5:25 PM [facility] REPOSITORY [facility] Medical Records Department [address] [place] [address] Discharge Instruction 10/05/17 1254 MR#: [id number] Acct: [id number] Name: RONI LAWSON Rep #: [id number] : 1975 42 From: Conor Downing MD PCP: Lia Ibarra MD Status: DEP ER ED Disposition - Plan for ED Patient: Disposition: Home or Assisted Living Chief Complaint: Back Instructions: ED Neck Back Pain General Referrals: Lia Ibarra MD [Primary Care Provider] - As Needed Susan Nicole MD [STAFF PHYSICIAN] - As soon as possible Additional Instructions: Continue your current home pain medications. Call follow-up with Dr. Nicole. What to do if you have Problems For any increased pain, shortness of breath, bleeding, nausea or vomiting, chest pain, or any unexpected problems, contact your Primary Care Provider. Call [facility] ([phone]) or report to the closest Emergency Room. Call 911 if necessary. 10/05/17 1894 <Electronically signed by Conor Downing MD> Date Conor Downing MD Cosigner Signature (If Indicated): Date CC: Lia Ibarra MD ALLERGIES ALLERGIES DATE TYPE / CODE NAME / CODE REACTION SEVERITY SOURCE 05/17/2018 Drug Penicillins/ Hives Unknown [facility] Allergy/4160 [id number]([facility] [address](SNOMED XNORM) Repository CT) ENCOUNTERS ENCOUNTERS ADMIT/DISCHARGE ACCOUNT NUMBER ADMITTING ENCOUNTER LOCATION SOURCE CLASS 05/17/2018/05/17/20 [id number] Emergency [address] ding:ED Repository 03/28/2018/03/28/20 [id number] Ambulatory [address] ding:[facility] Repository 03/07/2018/03/07/20 [id number] Emergency [address] ding:ED Repository 01/04/2018 [id number] Ambulatory [facility] ding:LAB Repository 12/14/2017 [id number] Ambulatory [facility] ding:CT Repository 10/06/2017/10/07/19 [id number] Emergency [address] ding:ED Repository 10/05/2017/10/06/19 [id number] Emergency [address] ding:ED Repository 08/09/2017/08/10/19 [id number] Emergency BBuilding:ER [address] Repository PAYERS PAYERS ENCOUNTER GUARANTOR PAYER SUBSCRIBER SOURCE 05/17/2018 RONI GARCIAS N Primary RONI Krueger COXDOB: [place] MAIN Insurance:[employer]HE[employer]icy [id number] Number: [place], [place] [address]Jsc: [id number] Repository ve Date:[id number] [address]DL: 05/17/2018 Secondary NOT GIVENUNK [place] Insurance:SELF PAY [facility] Number: Effective Repository Date:2018-05-17 03/28/2018 RONI LAWSONDOB: Primary RONI Krueger COXDOB: [facility] N [facility] [id number] MAIN CROSS INSC[employer]icy N MAIN Repository [place] Number: [place], [place] [address]Xll: [id number] [place] [address]Ckf: ve Date:2018-03-28 - (HP)Tel: [phone] (HP) () Name:ASH[address]0000 (WP) CEDRICK Jerez [address]UI: 03/07/2018 RONI LAWSON43 N Primary RONI A COXDOB: [place] MAIN Insurance:ANTHEMPolicy [id number] [facility] Number: [place], [place] [address]Ldp: [id number] Repository ve Date:6112-90-02UG () [address] CEDR[address] JERE[address] [address]ZT: 03/07/2018 Secondary NOT GIVENUNK [place] Insurance:SELF PAY [facility] Number: Effective Repository Date:2018-03-07 01/04/2018 RONI GARCIAS N Primary RONI A COXDOB: [place] MAIN Insurance:[employer]HE[employer] [id number] [facility] Number: [place], [place] [address]Soa: [id number] Repository ve Date:[id number] () [address], [place] [address]QL: 01/04/2018 Secondary NOT GIVENUNK [place] Insurance:SELF PAY [facility] Number: Effective Repository Date:2018-01-04 12/14/2017 RONI GARCIAS N Primary RONI A COXDOB: [place] MAIN Insurance:[employer] [id number] [facility] Number: [place], [place] [address]Rrf: [id number] Repository ve Date:2017-08-49CH () [address], [place] [address]UK: 12/14/2017 Secondary NOT GIVENUNK [place] Insurance:SELF PAY [facility] Number: Effective Repository Date:2017-11-16 10/06/2017 RONI LAWSON43 N Primary RONI A COXDOB: [place] MAIN Insurance:[employer]HE[employer] [id number] Community [place] Number: [place], [place] [address]Zem: [id number] Repository ve Date:[id number] () [address], [place] [address]WE: 10/06/2017 Secondary NOT GIVENUNK [place] Insurance:SELF PAY [facility] [address] [facility] Number: Effective Repository Date:2017-10-06 10/05/2017 RONI LAWSON43 N Primary RONI A COXDOB: [place] MAIN Insurance:[facility] [id number] [facility] Number: [place], [place] [address]Lcs: [id number] Repository ve Date:[id number] () [address], [place] [address]AN: 10/05/2017 Secondary NOT GIVENUNK [place] Insurance:SELF PAY [facility] Number: Effective Repository Date:2017-10-05 08/09/2017 RONI LAWSONDOB: Primary RONI Pati COXDOB: [place] N Insurance:[employer] [id number] [facility] MAIN [facility] Number: [facility] [place] [address]Knr: [id number] [place] [address]Dtd: ve Date:2017-08-09 - ()Tel: [phone] () () Name:[facility] TONIO 000-0000 () [id number] Echevarria [address]KB:
== END 2018-05-17 13:14 | disposition home or self-care (01) ==
LOC: ED 11:40
PROVIDERS: Emergency Provider Emergency Medicine
DX: M54.9 Dorsalgia, unspecified (principal); G89.29 Other chronic pain; R51 Headache; R19.7 Diarrhea, unspecified; F41.9 Anxiety disorder, unspecified; F17.200 Nicotine dependence, unspecified, uncomplicated
CPT/HCPCS: 70450; 80048; 85025; 93005; 96361; 96374; 96375; 96376; 99285; J7030; A4216; J2405

== ENCOUNTER 2018-08-08 13:12 | Emergency (ER) | payer BC, SELFPAY ==
[2018-08-08 13:13] VITALS: BP 143/91; PULSE 97; RESP 14; TEMP 35.8; BMI 27.8
[2018-08-08] MEDS: Ketorolac 60 MG/2 ML Vial IM (13:45)
[2018-08-08] MEDS: HYDROmorphone 1 MG/ML Syringe IM (13:45)
--- NOTE | 2018-08-08 13:45 | ED.DCSUM_ITS ---
- ER Visit Summary Date of Service: 08/08/18 Chief Complaint: Acute of chronic back pain History of Present Illness: The patient is a 43 M history of chronic back pain and chronic pain management. He has had prior laminectomies 3 prior back fusions and has a stimulator in place. He says from time to time his back will flareup every so many months he is to come in to get pain medication. He is on long-acting pain medicine and oxycodone at home. States took his normal medications this morning and just cannot control the pain. He denies any falls or trauma. No fever. He is on no blood thinners. He denies any bowel or bladder incontinence. Said this is no different than his normal exam basis. He does get pain primarily range from his low back to his right buttock and right hip area. He denies any weakness. Physical Examination: Middle-aged male. Complaint of pain. Vital signs are stable. He is afebrile. He does not look septic or toxic. He is in no distress other than the pain. HEENT exam unremarkable. Neck nontender. Lungs clear to auscultation bilaterally. Heart regular rhythm no murmur. Abdomen soft nontender. Normal bowel sounds no peritoneal signs. Patient sitting up on side of bed. He is awake and alert. He has normal motor strength in both upper and lower extremities. 5 out of 5 air pumper strength bilaterally. Dorsi plantar flexion intact. Negative straight leg raise bilaterally. No cauda equina. No saddle anesthesia. Normal medial thigh sensation. Back he has a large lower midline lumbar surgical scar appears well-healed. There is no redness or warmth. No drainage. Mild tenderness. Neurologically is awake and alert with no focal motor or sensory deficits. Again he has normal motor strength in both lower extremities and normal dorsi and plantar flexion. Test Results: None Emergency Department Course and Treatment: Acute on chronic back pain. With 1 dose of IM Toradol here. IM Dilaudid Treatment Plan: Discharged home to continue his current pain medications. Follow-up with his pain management physicians. Disposition: discharge Impression: Acute on chronic back pain with a history of prior degenerative disc disease, spinal fusion and laminectomy This note was generated with [employer] dictation software. It may contain incorrect words, spelling, and punctuation that were not noted in review of the chart prior to signing ED Disposition - Plan for ED Patient: Referrals: Caar Daley DO [Primary Care Provider] -
--- NOTE | 2018-08-08 13:45 | ED.DEP ---
ED Disposition - Plan for ED Patient: Disposition: Home or Assisted Living Instructions: ED Sciatica Referrals: Cara Daley DO [Primary Care Provider] - As Needed Additional Instructions: Follow-up with your pain management doctor. Continue your current pain medications at home.
--- NOTE | 2018-08-08 14:02 | ED.RN ---
PT STATES HE WILL CALL FOR RIDE HOME, THIS RN EXPLAINED HE COULD NOT DRIVE AFTER RECEIVING DILAUDID, PT VOICED UNDERSTANDING. AFTER DILAUDID ADMINISTERED, PT STATED IT'S GOING TO BE AWHILE BEFORE MY CAN COME. THIS RN STATED THAT WAS FINE, PT COULD WAIT IN ROOM UNLESS IT WAS NEEDED FOR ANOTHER CRITICAL PT.
== END 2018-08-08 14:52 | disposition home or self-care (01) ==
LOC: ED 13:53
PROVIDERS: Emergency Provider Emergency Medicine
DX: G89.29 Other chronic pain (principal); M54.9 Dorsalgia, unspecified; Z98.1 Arthrodesis status; Z72.0 Tobacco use
CPT/HCPCS: 96372; 99282

== ENCOUNTER 2019-03-10 07:33 | Emergency (ER) | payer BC, SELFPAY ==
[2019-03-10 07:34] VITALS: BP 153/112; PULSE 116; RESP 17; TEMP 36.9; O2SAT 99; BMI 26.6
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
[2019-03-10] MEDS: oxyCODONE 5 MG Tablet 10 MG PO (08:13)
== END 2019-03-10 08:15 | disposition home or self-care (01) ==
PROVIDERS: Emergency Provider Emergency Medicine
DX: M54.5 Low back pain (principal); G89.29 Other chronic pain; Z72.0 Tobacco use
CPT/HCPCS: 99283

== ENCOUNTER 2021-11-10 11:57 | Emergency (ER) | payer BC, SELFPAY ==
[2021-11-10 11:58] VITALS: BP 147/110; PULSE 107; RESP 18; TEMP 36.6; O2SAT 99; BMI 28.1
[2021-11-10 12:59] LABS: Bacteria 0 SEEN /hpf (None Seen); Mucous, Urine 0 SEEN /hpf (<or=2+); Red Blood Cells-Urine 0 SEEN /hpf (0-5); Squamous Epithelial Cells - UA 0 SEEN /hpf (0-5); White Blood Cells 0 SEEN /hpf (0-5)
[2021-11-10 13:00] LABS: Color, Urine Yellow (Yellow); Glucose, Dipstick Normal (Normal); Ketone-Dipstick 5 mg/dl (Negative); Leukocyte Esterase-Dipstick Negative /ul (Negative); Nitrite-Dipstick Negative (Negative); Occult Blood-Urine Negative /ul (Negative); Protein-Dipstick Negative (Negative); Urine Bilirubin Dipstick Negative (Negative); Urine Clarity Clear (Clear); Urine Urobilinogen Normal (Normal)
[2021-11-10 13:25] LABS: Absolute Lymphocyte Count 2.13 X10^3/uL (0.83-4.51); Absolute Neutrophil Count 7.1 X10^3/uL (2.0-7.7); Basophil# 0.02 X10^3/uL; Basophil% 0.2 % (0-1); Eosinophil# 0.03 X10^3/uL; Eosinophils% 0.3 % (0-5); Hematocrit 46.1 % (40-54); Hemoglobin 16.3 g/dL (13.0-16.5); Lymphocyte # 2.13 X10^3/ul (0.83-4.51); Lymphocyte % 21.7 % (19-41); Mean Corp Hgb Conc 35.4 g/dL (32-36); Mean Corpuscular Hgb 31.9 pg (27.0-32.0); Mean Corpuscular Volume 90.2 fL (80-94); Mean Platelet Vol. 8.6 fl (6.2-12.0); Monocyte# 0.52 X10^3/uL; Monocyte% 5.3 % (0-10); NRBC Flagged by Analyzer 0 % (0-5); Neutrophil # 7.08 X10^3/uL (2.7-7.7); Neutrophil % 72.2 % (47-70); Platelet Count 405 K/mm3 (150-450); RBC Distribution Width CV 12.9 % (11.6-14.6); RBC Distribution Width SD 42.8 fl (35.1-43.9); Red Blood Count 5.11 M/mm3 (4.6-6.2); White Blood Count 9.8 K/mm3 (4.4-11.0)
[2021-11-10 13:43] LABS: Anion Gap 6 (5-15); BUN 11 mg/dL (7-18); BUN/Creat Ratio 12.5 RATIO (10-20); Calcium,Total 9.3 mg/dL (8.5-10.1); Chloride 108 mmol/L (98-107); Creatinine, Serum 0.88 mg/dL (0.70-1.30); EST Glomerular Filtration Rate 99 mL/min (>60); Est Glom Filt Rate - Afr Amer 119 mL/min (>60); Glucose 103 mg/dL (74-106); Potassium 3.8 mmol/L (3.5-5.1); Sodium Level 139 mmol/L (136-145)
[2021-11-10 14:05] VITALS: BP 141/100; PULSE 95; RESP 16; O2SAT 99
--- NOTE | 2021-11-10 14:30 | ED.VIS.GI ---
HPI HPI - GI History of Present Illness Chief Complaint: Abd Pain Informant: patient Narrative Narrative: Patient presents with abdominal pain. He states he has been having symptoms for almost 2 months. He is trying to get into a primary physician but has not been able to. He states his bowel habits will change from normal to watery. No blood has been seen. He states his stools have been very malodorous for 2 months. He occasionally has a taste of that same foul smell in the back of his throat and gets some burning. But is not belching more. He will occasionally get abdominal pain but not always. Sometimes he gets sharp pain in the right upper quadrant but it sounds like it is brief. He has not been on any antibiotics. He has no history of Crohn's or ulcerative colitis although he does have a daughter with Crohn's. He cannot think of any change in his appetite or foods. No fevers or chills. No back or flank pain. No travel. PFSH PFS Medical History Back pain Home Medications acetaminophen [Tylenol Ex Str Rapid Release] 1,000 mg PO Q6H PRN 11/10/21 [History Last Taken Unknown] baclofen 10 mg PO TID 11/10/21 [History Last Taken Unknown] esomeprazole magnesium [Nexium] 20 mg PO DAILY #30 cap 11/10/21 [Rx Last Taken Unknown] ibuprofen 400 - 600 mg PO Q8H PRN 11/10/21 [History Last Taken Unknown] oxycodone myristate [Xtampza ER] 36 mg PO BID 11/10/21 [History Last Taken Unknown] Allergy/AdvReac Type Severity Reaction Status Date / Time Penicillins [PCN] Allergy Hives Verified 11/10/21 11:58 Surgical History H/O laminectomy H/O spinal fusion Social History Smoking Status: Current every day smoker tobacco type: cigarettes ROS ROS ED Constitutional Constitutional ED: Denies chills or fever(s) ENT ENT ED: Denies sore throat Cardiovascular Cardiovascular: Denies chest pain or palpitations Respiratory/Chest Respiratory/Chest: Denies cough, dyspnea or sputum Gastrointestinal Gastrointestinal: Reports abdominal pain and diarrhea; Denies constipation, melena, nausea or vomiting Genitourinary Genitourinary ED: Denies dysuria Musculoskeletal Musculoskeletal: Denies back pain or myalgias Integumentary Denies rash Neurologic Neurologic: Denies headache(s) Psychiatric Psychiatric: Denies depression Endocrine Endocrinology: Denies polydipsia or polyuria Hematologic/Lymphatic Hematologic/Lymphatic: Denies easy bleeding or easy bruising Allergic/Immunologic Allergic/Immunologic ED: Denies urticaria EXAM Physical Exam Const Vital Signs: 11/10/21 11:58 11/10/21 14:05 Temperature 97.9 F Temperature Source Temporal Pulse Rate 107 H 95 Respiratory Rate 18 16 Blood Pressure 147/110 H 141/100 H Blood Pressure Mean 122 113 Pulse Ox 99 99 Oxygen Delivery Method Room Air Room Air Positive well nourished and well developed General Appearance ED: well developed and NAD HEENT Reports moist mucous membranes Eyes General Eye ED: Negative for pale conjunctiva or scleral icterus Neck no JVD Resp normal respiratory effort and clear to auscultation bilaterally Cardio regular rate and regular rhythm GI non-tender, non-distended and no masses Auscultation: normoactive bowel sounds Palpation: soft; Negative for tender, guarding or rigid Back/Spine no CVA tenderness Extremity full ROM Neuro Sensorium / Orientation: alert Psych mental status grossly normal Skin Rashes: no rashes MDM MDM MDM Narrative Medical decision making narrative: Patient CBC shows no acute process. Electrolytes liver function tests and urine are normal. Patient wants to go. He has not yet given a stool sample. I encouraged sending this off if possible. We will treat him as if he is GERD. But I think he needs follow-up to make sure the odor of the stool goes away. This is why wanted to check stool studies. We discussed reasons to return. He has no abdominal pain at this time and it is benign. Lab Data Attestation: I reviewed the patient's lab results. Labs: Laboratory Results - last 24 hr 11/10/21 11/10/21 11/10/21 12:53 13:15 13:15 WBC 9.8 RBC 5.11 Hgb 16.3 Hct 46.1 MCV 90.2 MCH 31.9 MCHC 35.4 RDW Std Deviation 42.8 RDW Coeff of Greg 12.9 Plt Count 405 MPV 8.6 Immature Gran % (Auto) 0.300 Neut % (Auto) 72.2 H Lymph % (Auto) 21.7 Creek % (Auto) 5.3 Eos % (Auto) 0.3 Baso % (Auto) 0.2 Absolute Neuts (auto) 7.1 Absolute Lymphs (auto) 2.13 Nucleated RBC % 0 Sodium 139 Potassium 3.8 Chloride 108 H Carbon Dioxide 25.0 Anion Gap 6 BUN 11 Creatinine 0.88 Estim Creat Clear Calc 100.40 Est GFR (MDRD) Af Amer 119 Est GFR (MDRD) Non-Af 99 BUN/Creatinine Ratio 12.5 Glucose 103 Calcium 9.3 Total Bilirubin Direct Bilirubin AST ALT Alkaline Phosphatase Total Protein Albumin Globulin Urine Color Yellow Urine Clarity Clear Urine pH 6.0 Ur Specific [place] 1.010 Urine Protein Negative Urine Glucose (UA) Normal Urine Ketones 5 H Urine Occult Blood Negative Urine Nitrite Negative Urine Bilirubin Negative Urine Urobilinogen Normal Ur Leukocyte Esterase Negative Urine RBC 0 SEEN Urine WBC 0 SEEN Ur Squamous Epith Cells 0 SEEN Urine Bacteria 0 SEEN Urine Mucus 0 SEEN 11/10/21 13:15 WBC RBC Hgb Hct MCV MCH MCHC RDW Std Deviation RDW Coeff of Greg Plt Count MPV Immature Gran % (Auto) Neut % (Auto) Lymph % (Auto) Creek % (Auto) Eos % (Auto) Baso % (Auto) Absolute Neuts (auto) Absolute Lymphs (auto) Nucleated RBC % Sodium Potassium Chloride Carbon Dioxide Anion Gap BUN Creatinine Estim Creat Clear Calc Est GFR (MDRD) Af Amer Est GFR (MDRD) Non-Af BUN/Creatinine Ratio Glucose Calcium Total Bilirubin 0.60 Direct Bilirubin 0.17 AST 9 L ALT 22 Alkaline Phosphatase 62 Total Protein 7.1 Albumin 4.2 Globulin 2.9 Urine Color Urine Clarity Urine pH Ur Specific [place] Urine Protein Urine Glucose (UA) Urine Ketones Urine Occult Blood Urine Nitrite Urine Bilirubin Urine Urobilinogen Ur Leukocyte Esterase Urine RBC Urine WBC Ur Squamous Epith Cells Urine Bacteria Urine Mucus Discharge Plan Triage Chief Complaint: Abd Pain Other Complaint: Diarrhea ED Provider: Etienne Cole Dx/Rx/DC Orders Clinical Impression: Gastritis, Intermittent diarrhea Instructions: ED Gastritis (Adult) Prescriptions: New esomeprazole magnesium [Nexium] 20 mg capsule,delayed release(DR/EC) 20 mg PO DAILY Qty: 30 RF: 0 No Action acetaminophen [Tylenol Ex Str Rapid Release] 500 mg Tablet 1,000 mg PO Q6H PRN (Reason: Pain) RF: 0 baclofen 10 mg tablet 10 mg PO TID RF: 0 ibuprofen 600 mg Tablet 400 - 600 mg PO Q8H PRN (Reason: Pain) RF: 0 Xtampza ER 36 mg cap,sprinkl,ER12hr(DONT CRUSH) 36 mg PO BID RF: 0 Primary Care Provider: Cara Daley Referrals: Cara Daley, [Primary Care Provider] - As soon as possible Disposition Disposition: Home, Self Care
[2021-11-10 15:35] LABS: AST(SGOT) 9 U/L (15-37); Alanine Aminotransfer ALT/SGPT 22 U/L (16-61); Albumin, Serum 4.2 g/dL (3.2-5.0); Alkaline Phosphatase 62 U/L (45-117); Bilirubin, Direct 0.17 mg/dL (0.00-0.30); Globulin 2.9 g/dL (2.2-4.2); Protein, Total 7.1 g/dL (6.4-8.2)
[2021-11-10 16:19] VITALS: BP 132/90; PULSE 89; RESP 16; O2SAT 97
== END 2021-11-10 16:23 | disposition home or self-care (01) ==
PROVIDERS: Emergency Medicine; Emergency Provider Emergency Medicine; Visit Provider Emergency Medicine
DX: K29.70 Gastritis, unspecified, without bleeding (principal); R19.7 Diarrhea, unspecified; F17.210 Nicotine dependence, cigarettes, uncomplicated
CPT/HCPCS: 80048; 80076; 81001; 85025; 99282; A4216

== ENCOUNTER 2023-03-02 17:00 | Outpatient (RCR) | payer BC, SELFPAY ==
--- NOTE | 2023-01-12 17:12 | HP.PTEVAL ---
Patient's Visit Information Visit Information Visit Information: RONI LAWSON is a 47 year old M referred to Physical Therapy by LATRICE ABEBE with a diagnosis of L impingement and RCT. Date of Evaluation: 01/12/23 Physical Therapist: Dakota Purcell, DPT, OCS, CSCS Visit Plan Frequency: 2x /Week Duration: 4-6 Weeks Plan: 2x/week for 3-6 weeks for activityu modification per hammer theory, strength to toleranc eof RC and postural muscles, return to UE exercise in gym as tolerated, progress HEP. May do TENS and ice if needed May do manual therapy mobs for pain grade 1/2 stretch pec Subjective Subjective: L shoulder hurts since end of last year getting back into weightlifting on bench press. [place] tear in L shoulder and hurt. Muscled his way through it for a few months and stopped lifting. it has settled down a bit but certain positions are still problems. Had an MRI form ortho and pain management and thought it looked bad. She told him it was a mess and a tear. it hurts with certain things like lifting arm out to side, carrying things and lifting to side. Feels ok with arm at side. Can raise arm OH in fornt with just slight pain. Reaching behind is slightly painful to tuck in shirt. Sleep is not a problem unless he sleeps on side and then it will hurt. 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 Can avoid lifting if he chooses. Last Wednesday was rough as he lifted more. Hobbies: outdoorsman, has avoided kayaking, fishing is not bad. He is R handed. Pain l shoulder: Pain Intensity (Out of 10): 0 Pain Intensity Range: 0 and 7 Comment: with lifting to side. Objective Objective: Walks and trasnfers I in therapy. cervical aROM WFL and without symptoms. has good scap ROM but retraction and depression are most limited B. Tender over supraspinatus insertion adn biceps tendon at groove on L. elbow and wrist and hand arom WFL. Shoulder Rom R normal adn painfree. L shoulder AROM painful end ranges of flexion, er and IR gently, most painful arc with abduction and pushing into it. has all motion, just hurts to abduct and er, and IR. PROM L shoulder elevation much better than active painwise weak with er and painful on L, IR is 4 and painfree. elevation is painful abd more than flexion and 4/5 flexion vs 3 abduction elbow strength 4+ flexiona dn extension L. + HK and + neer impingement tests on L, slight + drop arm, - ext rotation lag test. Balance/Special Test Scores Quick DASH Score: 34.0900 Goals Goal 1:: Patient feel pain 2/10 at worst and manageable at 75% improved Goal Time Frame: 4-6 Weeks Goal 2:: Lift arm OH without hesitation or pain. Goal Time Frame: 4-6 Weeks Goal 3:: work without increased pain Goal Time Frame: 4-6 Weeks Goal 4:: plan to resume kayaking Goal Time Frame: 4-6 Weeks Goal 5:: quickdash 15 or better Goal Time Frame: 4-6 Weeks Goal 6:: I management of condition Rehabilitation Potential Physical Therapy Diagnosis: RCT L shoulder effecting function and causing pain. Rehabilitation Potential: Good Anticipated Interventions Patient/Client Instruction: Educate patient on: Condition and Plan of Care For the Purpose of:: To decrease pain, To increase ROM, To improve muscle performance and motor function, To increase tolerance to activity/condition/position and To improve ability of physical actions for home/community/work/leisure Therapeutic Exercise to Include: Strength training, Flexibilty training, Passive ROM, Active ROM and Scapular Strength/Stabilization For the Purpose of:: To decrease pain, To increase ROM, To improve nutrient delivery to tissue, To improve muscle performance and motor function, To improve ability of physical actions for home/community/work/leisure and To improve gait and locomotor functions Manual Therapy Techniques to Include: Mobilization, Passive ROM and Soft tissue mobilization For the Purpose of:: To decrease pain and To decrease swelling/inflammation TENS: Yes Cryotherapy (ice pack, ice massage): Yes For the Purpose of:: To decrease pain and To decrease swelling/inflammation Text: Thank you for the opportunity to evaluate your patient. For Medicare and Medicare HMO plans, please review the plan of care and approve it. It will need to be FAXED BACK to us at [phone] for Medicare purposes. For Medicare only, by signing this I certify the plan of care. Please let me know if there are questions or concerns regarding this plan of care. Physician Signature: Date:
--- NOTE | 2023-03-02 17:17 | HP.PTDCSUM ---
Discharge Summary D/C summary: It has been my pleasure to treat RONI LAWSON referred by LATRICE ABEBE, with the diagnosis of L impingement and RCT for a total of 9 visit(s). Discharge Date: 03/02/23 Please see the following information for a summary of their discharge status. Subjective Subjective: Probably worse than day one. I overdo it. Gardening and yard work. Was sick for the last week withbronchitis and got antibiotic yesterday from doctor. pain in shoulder is up to 7/10 this week with certain motions out to side and up. Sometimes worse after doing them. 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 HEP: doing them now and then 2-3x/week 3x10 with yellow. Sleep is only interrupted if he wakes up on arm and still sleeping on tummy. No f/u with doctor scheduled but sees them monthly for back. Pain l shoulder: Pain Intensity (Out of 10): 2 Overall Improvement % Improvement: 10 Objective Objective/Function: Patient subjectively not much better than a month ago and still is sleeping on tummy and averdoing thin gs at home admittedly. Has full aROM B shoulders but slow and hesitant with elevation and end range er and IR of l shoulder. strength L er painful and 4-, IR 4+. + empty can, + yergasons, - labral, Goals Goal 1:: Patient feel pain 2/10 at worst and manageable at 75% improved Goal Progress: Not Progressing Goal 2:: Lift arm OH without hesitation or pain. Goal Progress: Not Progressing Goal 3:: work without increased pain Goal Progress: Not Progressing Goal 4:: plan to resume kayaking Goal Progress: Not Progressing Goal 5:: quickdash 15 or better Goal Progress: Not Progressing Goal 6:: I management of condition Goal Progress: ? Plan Plan: d./c due to lack of progress, recommend f/u with doctor for next medical step(ortho?) D/C Information Discharge Comments: Pt to contact doctor regarding next medical step. d/c sentence: If there are questions or concerns regarding this patient's physical therapy, please feel free to call me at [phone]. Thank you for the referral of this patient. Sincerely, Dakota Purcell, DPT, OCS, CSCS Balance/Gait/Functional tests Balance/Special Test Scores Quick DASH Score: 45.4525 Improvement % Improvement: 10
== END 2023-03-02 19:00 | disposition home or self-care (01) ==
LOC: PT 17:00
PROVIDERS: Referring Provider Registered Nurse Maternal Newborn; Visit Provider Registered Nurse Maternal Newborn
DX: M75.42 Impingement syndrome of left shoulder (principal); M75.22 Bicipital tendinitis, left shoulder; M75.100 Unspecified rotator cuff tear or rupture of unspecified shoulder, not specified as traumatic
CPT/HCPCS: 97110; 97140; 97161; 97164; 97530